=== PATIENT | female | born 1940 | race Caucasian/White ===

== ENCOUNTER 2021-10-31 09:11 | Inpatient (IN) | payer MEDICARE, OTHER ==
[2021-10-31 17:55] LABS: Basophil (Absolute #) 0.05 x10^3/uL (0-0.4); Eosinophil % 6.6 % (0.00-5.0); Eosinophil (Absolute #) 0.41 x10^3/uL (0-0.5); Hemoglobin 8.3 g/dL (12.0-16.0); Lymphocyte (Absolute #) 0.57 x10^3/uL (1.0-4.6); Lymphocytes % 9.2 % (24.0-44.0); Mean Cell Volume 92.8 fL (78-100); Mean Corpuscular Hemoglobin 28.5 pg (26-32); Mean Corpuscular Hgb Concent. 30.7 g/dL (32-36); Mean Platelet Volume 10.5 fL (7.5-11.0); Monocyte (Absolute #) 0.56 x10^3/uL (0.0-1.3); Neutrophil % 74.1 % (36.0-66.0); Platelet Count 112 x10^3/uL (150-450); Red Blood Count 2.91 x10^6/uL (4.1-5.4); Red Cell Distribution Width 15.7 % (11.5-14.0); White Blood Count 6.2 x10^3/uL (4.0-10.5)
[2021-10-31 18:11] LABS: ALBUMIN 3.8 g/dL (3.5-5.0); ANION GAP 14.6 MEQ/L (5-15); BILIRUBIN,TOTAL 0.7 mg/dL (0.2-1.3); Calcium 8.3 mg/dL (8.4-10.2); Creatinine 1 1.97 mg/dL (0.52-1.04); Potassium 5.1 mmol/L (3.5-5.1); Total Protein 7.6 g/dL (6.3-8.2)
[2021-10-31 18:32] LABS: INFLUENZA A NEGATIVE (NEGATIVE); INFLUENZA B NEGATIVE (NEGATIVE); RESPIRATORY SYNCTIAL VIRUS NEGATIVE (Negative); SARS-CoV-2 Xpert Express NEGATIVE (NEGATIVE)
[2021-10-31] MEDS ORDERED: VANCOCIN INJECTION*** 0.75 GM in Sodium Chloride 0.9% 250 ML 250 ML IV SCH (19:30)
[2021-10-31] MEDS ORDERED: Sodium Chloride 100ML MINI-BAG PLUS 100 ML IV ONE (20:56)
[2021-10-31] MEDS ORDERED: PIPERACILLIN/TAZOBACTAM IV ONE (20:56)
[2021-10-31] MEDS: PIPERACILLIN/TAZOBACTAM 3.375 GM in Sodium Chloride 100ML MINI-BAG PLUS 100 ML IV SCH (21:09)
[2021-10-31] MEDS: HUMALOG SQ PRN (21:13)
[2021-10-31] MEDS: NEURONTIN PO SCH (21:47)
[2021-11-01] MEDS ORDERED: PIPERACILLIN/TAZOBACTAM IV ONE ×2 (03:09→03:10)
[2021-11-01] MEDS ORDERED: Sodium Chloride 100ML MINI-BAG PLUS 100 ML IV ONE (03:11)
[2021-11-01] MEDS: PIPERACILLIN/TAZOBACTAM 3.375 GM in Sodium Chloride 100ML MINI-BAG PLUS 100 ML IV SCH (03:12)
--- NOTE | 2021-11-01 08:51 | XRAY ---
Indication: Abdomen pain. Umbilical hernia surgery March 2021 with erythema/swelling at surgical site. Multiple contiguous axial images obtained through the abdomen and pelvis without contrast. Comparison: December 07, 2019 Lung bases remain clear. Heart not enlarged. Again small hiatal hernia. Interval enlarging anterior abdominal wall fluid collection at the level of the umbilicus now measuring at least 5.6 x 7.3 x 7.2 cm with new circumferential wall thickening. Inflammatory/infectious process is of primary concern. Lack of IV contrast precludes further characterization. More inferior abdominal wall demonstrates new large focus of moderate cutaneous/subcutaneous induration. No subcutaneous emphysema. There has been interval left hip arthroplasty with bipolar prosthesis now producing beam artifact limiting these levels. Liver again appears cirrhotic with small abdominal/pelvic ascites, 14.4 cm splenomegaly, and splenorenal varices. Gallbladder remains distended with moderate dense gravel/stones in the dependent portion. Noncontrasted stomach and bowel loops nonobstructed again with small descending duodenal diverticulum. Again sigmoid diverticulosis without diverticulitis. Mid pelvis again demonstrates a grossly stable 7.5 cm simple-appearing cystic mass anterior to uterus. Uterus again demonstrates tiny calcified fibroid. No free air. Remaining pancreas, adrenal glands, kidneys, ureters, and bladder are unremarkable for noncontrast exam. There remains mild scattered aortoiliac calcifications without AAA. Osseous structures again demonstrates osteopenia and mild degenerative changes throughout the spine and both hips. Impression: 1. Interval enlarging umbilical fluid collection as detailed. Inflammatory/infectious processes of primary concern on this noncontrast exam. Also inferior abdominal wall cutaneous/subcutaneous induration also presumed inflammatory/infectious. 2. New left hip arthroplasty with beam artifact. 3. Again chronic findings cirrhosis, small abdomen/pelvic ascites, spinal megaly, splenorenal varices, duodenal diverticulum, sigmoid diverticulosis, calcified uterine fibroid, indeterminant pelvic cystic mass, arteriosclerotic disease, and chronic bony findings.
--- NOTE | 2021-11-01 08:53 | XRAY ---
Indication: Abdominal pain. Erythema/pain around umbilical hernia site. Comparison: None KUB demonstrates nonspecific nonobstructed bowel gas pattern. Numerous tiny gallstones/gravel. Remaining solid organs unremarkable. Osseous structures intact with mild osteopenia, degenerative changes, and left total hip arthroplasty. CT same-day CT abdomen/pelvis exam.
--- NOTE | 2021-11-01 08:55 | XRAY ---
Indication: Abdominal pain. Comparison: February 19, 2013 PA/lateral chest demonstrates new minimal lingula subsegmental atelectasis/scarring. Remaining heart and lungs unremarkable again with incidental tiny left lung calcified granulomas. Bony thorax intact with mild osteopenia and degenerative changes.
[2021-11-01 09:08] LABS: Absolute Neutrophil Ct (ANC) 4.38 x10^3/uL (1.4-6.9); Basophil (Absolute #) 0.05 x10^3/uL (0-0.4); Eosinophil % 8.5 % (0.00-5.0); Eosinophil (Absolute #) 0.52 x10^3/uL (0-0.5); Hematocrit 26.5 % (35-47); Hemoglobin 8.1 g/dL (12.0-16.0); Lymphocyte (Absolute #) 0.59 x10^3/uL (1.0-4.6); Lymphocytes % 9.7 % (24.0-44.0); Mean Cell Volume 92.7 fL (78-100); Mean Corpuscular Hemoglobin 28.3 pg (26-32); Mean Corpuscular Hgb Concent. 30.6 g/dL (32-36); Mean Platelet Volume 10.1 fL (7.5-11.0); Monocyte (Absolute #) 0.55 x10^3/uL (0.0-1.3); Neutrophil % 71.7 % (36.0-66.0); Platelet Count 106 x10^3/uL (150-450); Red Blood Count 2.86 x10^6/uL (4.1-5.4); Red Cell Distribution Width 15.5 % (11.5-14.0); White Blood Count 6.1 x10^3/uL (4.0-10.5)
[2021-11-01 09:22] LABS: ALBUMIN 3.5 g/dL (3.5-5.0); ANION GAP 11.7 MEQ/L (5-15); BILIRUBIN,TOTAL 0.7 mg/dL (0.2-1.3); Calcium 8.3 mg/dL (8.4-10.2); Creatinine 1 2.11 mg/dL (0.52-1.04); Potassium 5.3 mmol/L (3.5-5.1); Total Protein 7.2 g/dL (6.3-8.2)
[2021-11-01] MEDS ORDERED: NON-FORMULARY ITEM (Insulin Detemir [Levemir] 100 UNIT/ML Vial) SQ SCH (10:00)
[2021-11-01] MEDS ORDERED: NON-FORMULARY ITEM (Losartan Potassium [Losartan Potassium] 100 MG Tablet) PO SCH (10:00)
[2021-11-01] MEDS ORDERED: NON-FORMULARY ITEM (Spironolactone [Spironolactone] 100 MG Tablet) PO SCH (10:00)
[2021-11-01] MEDS: Lactated Ringers 1,000 ML IV SCH ×2 (10:28→23:58)
[2021-11-01] MEDS: Aldactone 25 MG PO SCH (10:30)
[2021-11-01] MEDS: Lasix 40 MG PO SCH ×2 (10:31→17:12)
[2021-11-01] MEDS: Cozaar 50 MG PO SCH (10:31)
[2021-11-01] MEDS: NEURONTIN PO SCH ×2 (10:32→22:10)
[2021-11-01] MEDS: Lantus Insulin SQ SCH (10:33)
[2021-11-01 10:45] LABS: Slide Review 1 YES
[2021-11-01] MEDS: Piperacillin/Tazobactam 2.25 GM 2.25 GM in Sodium Chloride 100ML MINI-BAG PLUS 100 ML IV SCH ×3 (12:04→23:58)
[2021-11-01] MEDS: HUMALOG SQ PRN ×3 (12:05→22:10)
--- NOTE | 2021-11-01 13:10 | PCM.HP ---
History of Present Illness - Chief Complaint Chief Complaint: cellulitis History of Present Illness: is a 80 year old female pt of Kathrin Reis with DMII, HTN, GERD, hypothryoidism, OA, anemia,liver dz and renal failure (stage 3) who was seen in office by Kathrin yesterday then admitted by me for lower abdominal cellulitis. She had a hernia repair in Mar 2021 and had multiple drains placed for some time (all are now removed). Her lower abdomen/pannus has been red for some time. How ever, 3 weeks ago it became sore as well. Yesterday it was 7/10; she was admitted on IV vancomycin and zosyn. CT abdominal wall showed umbilical fluid collection, enlarging (now 5.6 x 7.3 x 7.2 cm ). On admission her hgb was 8.3. WBC 6.2 (with 74% granulocytes). Na 128. Today WBC remain nl with L shift. Na 132. Hgb 8.1. Today she feels much better. Abd wall pain is 1/10. - Review of Systems Respiratory: Cough (chronic) Abdominal/Gastrointestinal: Diarrhea (chronic, since surgery) Skin: Cellulitis Neurological: Dizziness (lightheaded, recently) Psychological: Depression (when she was in pain - now feeling fine) All Other Systems: Reviewed and Negative Medications & Allergies Home Medications: Home Medication List Furosemide 40 mg [Lasix 40 MG] 40 mg PO BID 10/31/21 [History Confirmed 10/31/21] Gabapentin 300 mg PO BID 10/31/21 [History Confirmed 10/31/21] Glipizide 5 mg [Glucotrol 5 MG] 10 mg PO BID 10/31/21 [History Confirmed 10/31/21] Insulin Detemir [Levemir] 15 - 30 unit SQ DAILY 10/31/21 [History Confirmed 10/31/21] Losartan Potassium 100 mg PO DAILY 10/31/21 [History Confirmed 10/31/21] Spironolactone 100 mg PO DAILY 10/31/21 [History Confirmed 10/31/21] Allergies/Adverse Reactions: Allergies Allergy/AdvReac Type Severity Reaction Status Date / Time No Known Drug Allergies Allergy Unverified 10/31/21 17:36 - Past Medical History Past Medical History: Yes Neurological History: Peripheral Neuropathy ENT History: No Pertinent History Cardiac History: No Pertinent History Respiratory History: Asthma Endocrine Medical History: Diabetes Type II, Hypothyroidism Musculoskelatal History: Arthritis, Osteoarthritis GI Medical History: Cirrhosis, Hernia History: Renal Disease Reproductive Disorders: No Pertinent History Comment: KIDNEY DISEASE, STATES KIDNEY'S WORK AT 1/3 ANEMIA, VERACES - Female History Are you now?: No - Past Surgical History Past Surgical History: Yes Cardiac History: No Pertinent History Respiratory Surgery: No Pertinent History GI Surgical History: Hernia Repair Genitourinary Surgical Hx: No Pertinent History Musculskeletal Surgical Hx: Orthopedic Surgery Female Surgical History: No Pertinent History Other Surgical History: L AND RIGHT KNEE REPLACEMENT; LEFT HIP REPLACEMENT; HERNIA REPAIR X 2; - Social History Smoking Status: Former smoker Alcohol: None Drug Use: none - Physical Exam Vital Signs: Vital Signs - 24 hr Temp Pulse Resp BP Pulse Ox 11/01/21 11:39 97.1 F 68 18 120/80 98 11/01/21 07:37 97.5 F 69 18 117/57 97 11/01/21 04:00 97.5 F 77 16 130/60 98 11/01/21 00:00 97.8 F 79 20 107/48 96 General Appearance: no apparent distress, obese Neurologic Exam: alert, oriented x 3, cooperative Eye Exam: eyes nml inspection Ears, Nose, Throat Exam: moist mucous membranes Neck Exam: normal inspection, No lymphadenopathy, No thyromegaly Respiratory Exam: normal breath sounds, lungs clear, No crackles/rales, No rhonchi, No wheezing Cardiovascular Exam: regular rate/rhythm, normal heart sounds, No murmur Gastrointestinal/Abdomen Exam: soft, normal bowel sounds, other (from approx the area of the umbilicus inferior to the inferior edge of the pannus, there is a dull erythema, with warmth. there is induration around the area of the umbilicus (approx 6x6 cm). Mild ttp. No exudates or fluctuance.) Extremity Exam: normal inspection, No pedal edema, No swelling Wound Assessment: Skin/Wound Assessment Wound/Incision Assessment Start: 10/31/21 17:21 Text: Status: Active Freq: Q6H Protocol: Document 11/01/21 00:11 LB (Rec: 11/01/21 00:14 LB [id number]) Wound/Incision Assessment Abdomen Comment . Wound Photo Photo Taken No Results - Labs Lab/Micro Results: Lab Results-Last 24 Hours 10/31/21 10/31/21 10/31/21 Range/Units 17:45 17:45 17:45 WBC 6.2 (4.0-10.5) x10^3/uL RBC 2.91 L (4.1-5.4) x10^6/uL Hgb 8.3 L (12.0-16.0) g/dL Hct 27.0 L (35-47) % MCV 92.8 (78-100) fL MCH 28.5 (26-32) pg MCHC 30.7 L (32-36) g/dL RDW 15.7 H (11.5-14.0) % Plt Count 112 L (150-450) x10^3/uL MPV 10.5 (7.5-11.0) fL Gran % 74.1 H (36.0-66.0) % Immature Gran % (Auto) 0.3 (0.00-0.4) % Nucleat RBC Rel Count 0.0 (0.00-0.1) % Eos # (Auto) 0.41 (0-0.5) x10^3/uL Immature Gran # (Auto) 0.02 (0.00-0.03) x10^3u/L Absolute Lymphs (auto) 0.57 L (1.0-4.6) x10^3/uL Absolute Monos (auto) 0.56 (0.0-1.3) x10^3/uL Absolute Nucleated RBC 0.00 (0.00-0.01) x10^3u/L Lymphocytes % 9.2 L (24.0-44.0) % Monocytes % 9.0 (0.0-12.0) % Eosinophils % 6.6 H (0.00-5.0) % Basophils % 0.8 (0.0-0.4) % Absolute Granulocytes 4.60 (1.4-6.9) x10^3/uL Basophils # 0.05 (0-0.4) x10^3/uL Sodium 128 L (137-145) mmol/L Potassium 5.1 (3.5-5.1) mmol/L Chloride 91 L (98-107) mmol/L Carbon Dioxide 28 (22-30) mmol/L Anion Gap 14.6 (5-15) MEQ/L BUN 37 H (7-17) mg/dL Creatinine 1.97 H (0.52-1.04) mg/dL Estimated GFR 26.0 ML/MIN Glucose 433 H (74-106) mg/dL POC Glucometer (74 to 106) mg/dL Hemoglobin A1c (4.5-6.0) % Calcium 8.3 L (8.4-10.2) mg/dL Total Bilirubin 0.70 (0.2-1.3) mg/dL AST 35 (14-36) U/L ALT 15 (0-35) U/L Alkaline Phosphatase 163 H (38-126) U/L Serum Total Protein 7.6 (6.3-8.2) g/dL Albumin 3.8 (3.5-5.0) g/dL Influenza Type A Ag NEGATIVE (NEGATIVE) Influenza Type B Ag NEGATIVE (NEGATIVE) RSV (PCR) NEGATIVE (Negative) SARS-CoV-2 (PCR) NEGATIVE (NEGATIVE) Slides for Path Review 10/31/21 11/01/21 11/01/21 Range/Units 20:38 05:00 06:55 WBC (4.0-10.5) x10^3/uL RBC (4.1-5.4) x10^6/uL Hgb (12.0-16.0) g/dL Hct (35-47) % MCV (78-100) fL MCH (26-32) pg MCHC (32-36) g/dL RDW (11.5-14.0) % Plt Count (150-450) x10^3/uL MPV (7.5-11.0) fL Gran % (36.0-66.0) % Immature Gran % (Auto) (0.00-0.4) % Nucleat RBC Rel Count (0.00-0.1) % Eos # (Auto) (0-0.5) x10^3/uL Immature Gran # (Auto) (0.00-0.03) x10^3u/L Absolute Lymphs (auto) (1.0-4.6) x10^3/uL Absolute Monos (auto) (0.0-1.3) x10^3/uL Absolute Nucleated RBC (0.00-0.01) x10^3u/L Lymphocytes % (24.0-44.0) % Monocytes % (0.0-12.0) % Eosinophils % (0.00-5.0) % Basophils % (0.0-0.4) % Absolute Granulocytes (1.4-6.9) x10^3/uL Basophils # (0-0.4) x10^3/uL Sodium (137-145) mmol/L Potassium (3.5-5.1) mmol/L Chloride (98-107) mmol/L Carbon Dioxide (22-30) mmol/L Anion Gap (5-15) MEQ/L BUN (7-17) mg/dL Creatinine (0.52-1.04) mg/dL Estimated GFR ML/MIN Glucose (74-106) mg/dL POC Glucometer 383 H 123 H (74 to 106) mg/dL Hemoglobin A1c 10.22 H (4.5-6.0) % Calcium (8.4-10.2) mg/dL Total Bilirubin (0.2-1.3) mg/dL AST (14-36) U/L ALT (0-35) U/L Alkaline Phosphatase (38-126) U/L Serum Total Protein (6.3-8.2) g/dL Albumin (3.5-5.0) g/dL Influenza Type A Ag (NEGATIVE) Influenza Type B Ag (NEGATIVE) RSV (PCR) (Negative) SARS-CoV-2 (PCR) (NEGATIVE) Slides for Path Review 11/01/21 11/01/21 11/01/21 Range/Units 09:07 09:07 11:13 WBC 6.1 (4.0-10.5) x10^3/uL RBC 2.86 L (4.1-5.4) x10^6/uL Hgb 8.1 L (12.0-16.0) g/dL Hct 26.5 L (35-47) % MCV 92.7 (78-100) fL MCH 28.3 (26-32) pg MCHC 30.6 L (32-36) g/dL RDW 15.5 H (11.5-14.0) % Plt Count 106 L (150-450) x10^3/uL MPV 10.1 (7.5-11.0) fL Gran % 71.7 H (36.0-66.0) % Immature Gran % (Auto) 0.3 (0.00-0.4) % Nucleat RBC Rel Count 0.0 (0.00-0.1) % Eos # (Auto) 0.52 H (0-0.5) x10^3/uL Immature Gran # (Auto) 0.02 (0.00-0.03) x10^3u/L Absolute Lymphs (auto) 0.59 L (1.0-4.6) x10^3/uL Absolute Monos (auto) 0.55 (0.0-1.3) x10^3/uL Absolute Nucleated RBC 0.00 (0.00-0.01) x10^3u/L Lymphocytes % 9.7 L (24.0-44.0) % Monocytes % 9.0 (0.0-12.0) % Eosinophils % 8.5 H (0.00-5.0) % Basophils % 0.8 (0.0-0.4) % Absolute Granulocytes 4.38 (1.4-6.9) x10^3/uL Basophils # 0.05 (0-0.4) x10^3/uL Sodium 132 L (137-145) mmol/L Potassium 5.3 H (3.5-5.1) mmol/L Chloride 96 L (98-107) mmol/L Carbon Dioxide 29 (22-30) mmol/L Anion Gap 11.7 (5-15) MEQ/L BUN 35 H (7-17) mg/dL Creatinine 2.11 H (0.52-1.04) mg/dL Estimated GFR 24.0 ML/MIN Glucose 153 H (74-106) mg/dL POC Glucometer 180 H (74 to 106) mg/dL Hemoglobin A1c (4.5-6.0) % Calcium 8.3 L (8.4-10.2) mg/dL Total Bilirubin 0.70 (0.2-1.3) mg/dL AST 37 H (14-36) U/L ALT 15 (0-35) U/L Alkaline Phosphatase 130 H (38-126) U/L Serum Total Protein 7.2 (6.3-8.2) g/dL Albumin 3.5 (3.5-5.0) g/dL Influenza Type A Ag (NEGATIVE) Influenza Type B Ag (NEGATIVE) RSV (PCR) (Negative) SARS-CoV-2 (PCR) (NEGATIVE) Slides for Path Review YES Accuchecks Date 10/31/21 Time 22:00 - Radiology Impressions Radiology Exams & Impressions: Radiology Procedures Category Date Time Status ABDOMEN AND PELVIS W/0 CONTRAS [CT] Urgent Exams 10/31/21 16:57 Completed CHEST 2 VIEWS (PA AND LAT) Urgent Exams 10/31/21 19:21 Completed KUB Urgent Exams 10/31/21 19:21 Completed Assessment/Plan (1) Abdominal wall cellulitis Current Visit: Yes Status: Acute Assessment & Plan: Much improved after 1 night on zosyn/vancomycin (day #2). Consulting surgery for fluid collection at level of umbilicus, thank you. Code(s): L03.311 - CELLULITIS OF ABDOMINAL WALL (2) Acute on chronic renal failure Current Visit: Yes Status: Acute Qualifiers: Acute renal failure type: unspecified Chronic kidney disease stage: stage 4 (severe) Qualified Code(s): N17.9 - Acute kidney failure, unspecified; N18.4 - Chronic kidney disease, stage 4 (severe) Assessment & Plan: eGFR 26 yesterday and 24 today; have restarted her fluids. May need to change the vancomycin to another agent. Code(s): N17.9 - ACUTE KIDNEY FAILURE, UNSPECIFIED; N18.9 - CHRONIC KIDNEY DISEASE, UNSPECIFIED (3) Hyperkalemia Current Visit: Yes Status: Acute Assessment & Plan: holding spironolactone for K+ 5.3. Code(s): E87.5 - HYPERKALEMIA (4) Anemia Current Visit: Yes Status: Chronic Qualifiers: Anemia type: due to chronic kidney disease Chronic kidney disease stage: stage 3 (moderate) Code(s): D64.9 - ANEMIA, UNSPECIFIED (5) Hyponatremia Current Visit: Yes Status: Acute Assessment & Plan: improved today Code(s): E87.1 - HYPO-OSMOLALITY AND HYPONATREMIA (6) Diabetes mellitus type II, uncontrolled Current Visit: Yes Status: Chronic Qualifiers: Glycemic state: with hyperglycemia Qualified Code(s): E11.65 - Type 2 diabetes mellitus with hyperglycemia Assessment & Plan: a1c >10 Code(s): HAQ2877 - (7) Obesity Current Visit: Yes Status: Chronic Qualifiers: Obesity type: due to excess calories Code(s): E66.9 - OBESITY, UNSPECIFIED (8) Cirrhosis Current Visit: Yes Status: Chronic Assessment & Plan: has hx varices and ascites (9) HTN (hypertension) Current Visit: Yes Status: Chronic Qualifiers: Hypertension type: primary hypertension Qualified Code(s): I10 - Essential (primary) hypertension Code(s): I10 - ESSENTIAL (PRIMARY) HYPERTENSION (10) Hypothyroid Current Visit: Yes Status: Chronic Qualifiers: Hypothyroidism type: acquired Qualified Code(s): E03.9 - Hypothyroidism, unspecified Code(s): E03.9 - HYPOTHYROIDISM, UNSPECIFIED (11) GERD (gastroesophageal reflux disease) Current Visit: Yes Status: Chronic Qualifiers: Esophagitis presence: without esophagitis Qualified Code(s): K21.9 - Gastro-esophageal reflux disease without esophagitis Code(s): K21.9 - GASTRO-ESOPHAGEAL REFLUX DISEASE WITHOUT ESOPHAGITIS (12) DVT prophylaxis Current Visit: Yes Status: Acute Assessment & Plan: SCDs while in bed; encourage pt to be up. Code(s): Z29.9 - ENCOUNTER FOR PROPHYLACTIC MEASURES, UNSPECIFIED
[2021-11-01] MEDS ORDERED: IMODIUM 2 MG PO PRN (16:57)
[2021-11-01] MEDS: Acidophilus TABLET PO SCH ×2 (17:12→22:10)
[2021-11-01 18:13] LABS: 027 TOX PROD PRESUMPTIVE NEGATIVE (NEGATIVE)
[2021-11-01 18:28] LABS: TOXIGENIC C. DIFF ORG POSITIVE (NEGATIVE)
[2021-11-01] MEDS ORDERED: VANCOCIN INJECTION*** 0.75 GM in Sodium Chloride 0.9% 250 ML 250 ML IV SCH (22:00)
[2021-11-01] MEDS: VANCOMYCIN HCL CAPSULE PO SCH (22:10)
[2021-11-02] MEDS: Piperacillin/Tazobactam 2.25 GM 2.25 GM in Sodium Chloride 100ML MINI-BAG PLUS 100 ML IV SCH ×3 (06:58→17:51)
[2021-11-02 07:49] LABS: Absolute Neutrophil Ct (ANC) 2.89 x10^3/uL (1.4-6.9); Basophil (Absolute #) 0.03 x10^3/uL (0-0.4); Eosinophil % 7.9 % (0.00-5.0); Eosinophil (Absolute #) 0.32 x10^3/uL (0-0.5); Hematocrit 23.7 % (35-47); Hemoglobin 7.1 g/dL (12.0-16.0); Lymphocyte (Absolute #) 0.41 x10^3/uL (1.0-4.6); Lymphocytes % 10.1 % (24.0-44.0); Mean Cell Volume 92.2 fL (78-100); Mean Corpuscular Hemoglobin 27.6 pg (26-32); Mean Platelet Volume 10.5 fL (7.5-11.0); Monocyte (Absolute #) 0.41 x10^3/uL (0.0-1.3); Monocytes % 10.1 % (0.0-12.0); Platelet Count 79 x10^3/uL (150-450); Red Blood Count 2.57 x10^6/uL (4.1-5.4); Red Cell Distribution Width 15.4 % (11.5-14.0); White Blood Count 4.1 x10^3/uL (4.0-10.5)
--- NOTE | 2021-11-02 08:40 | PCM.NOTE ---
Date and Time: 11/02/21 0837 Subjective Assessment: patient is quite pleased with her progress, redness and pain are much improved. was given imodium prior to c diff result yesterday. hasn't had any diarrhea since then. overall doing much better. Objective Exam General Appearance: no apparent distress, obese Neurologic Exam: alert, oriented x 3 Wound Assessment: Skin/Wound Assessment Wound/Incision Assessment Start: 10/31/21 17:21 Text: Status: Active Freq: Q6H Protocol: Document 11/02/21 08:00 MARIANELA (Rec: 11/02/21 08:35 [id number]) Wound/Incision Assessment Abdomen Wound Assessment Shift Assessment Wound Type cellulitis Wound Stage Non Pressure Wound Dressing Status Dry & Intact Drainage Amount None General Appearance Open to air Surrounding Tissue [place] Comment reddened and warm to touch Wound Photo Photo Taken No Respiratory Exam: normal breath sounds, lungs clear, No respiratory distress Cardiovascular Exam: regular rate/rhythm Gastrointestinal/Abdomen Exam: soft, other (mild erythema to lower abdomen, no guarding or rebound) OBJECTIVE DATA Vital Signs: Vital Signs - 24 hr Temp Pulse Resp BP Pulse Ox 11/02/21 07:32 97.9 F 86 16 92/50 95 11/02/21 03:44 97.8 F 87 18 110/53 94 L 11/02/21 00:00 70 19 11/01/21 19:54 97.9 F 85 18 129/60 98 11/01/21 16:00 97.3 F 85 18 115/49 94 L 11/01/21 11:39 97.1 F 68 18 120/80 98 Pain Assessment - Last Documented Pain Intensity 0 Intake and Output: Intake & Output 10/30/21 10/31/21 11/01/21 11/02/21 11:59 11:59 11:59 11:59 Intake Total 1460 3937 Balance 1460 3937 Weight 93.4 kg Lab Results: Lab Results-Last 24 Hours 11/01/21 11/01/21 11/01/21 Range/Units 09:07 09:07 11:13 WBC 6.1 (4.0-10.5) x10^3/uL RBC 2.86 L (4.1-5.4) x10^6/uL Hgb 8.1 L (12.0-16.0) g/dL Hct 26.5 L (35-47) % MCV 92.7 (78-100) fL MCH 28.3 (26-32) pg MCHC 30.6 L (32-36) g/dL RDW 15.5 H (11.5-14.0) % Plt Count 106 L (150-450) x10^3/uL MPV 10.1 (7.5-11.0) fL Gran % 71.7 H (36.0-66.0) % Immature Gran % (Auto) 0.3 (0.00-0.4) % Nucleat RBC Rel Count 0.0 (0.00-0.1) % Eos # (Auto) 0.52 H (0-0.5) x10^3/uL Immature Gran # (Auto) 0.02 (0.00-0.03) x10^3u/L Absolute Lymphs (auto) 0.59 L (1.0-4.6) x10^3/uL Absolute Monos (auto) 0.55 (0.0-1.3) x10^3/uL Absolute Nucleated RBC 0.00 (0.00-0.01) x10^3u/L Lymphocytes % 9.7 L (24.0-44.0) % Monocytes % 9.0 (0.0-12.0) % Eosinophils % 8.5 H (0.00-5.0) % Basophils % 0.8 (0.0-0.4) % Absolute Granulocytes 4.38 (1.4-6.9) x10^3/uL Basophils # 0.05 (0-0.4) x10^3/uL Sodium 132 L (137-145) mmol/L Potassium 5.3 H (3.5-5.1) mmol/L Chloride 96 L (98-107) mmol/L Carbon Dioxide 29 (22-30) mmol/L Anion Gap 11.7 (5-15) MEQ/L BUN 35 H (7-17) mg/dL Creatinine 2.11 H (0.52-1.04) mg/dL Estimated GFR 24.0 ML/MIN Glucose 153 H (74-106) mg/dL POC Glucometer 180 H (74 to 106) mg/dL Calcium 8.3 L (8.4-10.2) mg/dL Total Bilirubin 0.70 (0.2-1.3) mg/dL AST 37 H (14-36) U/L ALT 15 (0-35) U/L Alkaline Phosphatase 130 H (38-126) U/L Serum Total Protein 7.2 (6.3-8.2) g/dL Albumin 3.5 (3.5-5.0) g/dL C. difficile Screen (NEGATIVE) C.difficile 027-NAP1-B1 (NEGATIVE) Slides for Path Review YES 11/01/21 11/01/21 11/01/21 Range/Units 16:37 17:00 20:44 WBC (4.0-10.5) x10^3/uL RBC (4.1-5.4) x10^6/uL Hgb (12.0-16.0) g/dL Hct (35-47) % MCV (78-100) fL MCH (26-32) pg MCHC (32-36) g/dL RDW (11.5-14.0) % Plt Count (150-450) x10^3/uL MPV (7.5-11.0) fL Gran % (36.0-66.0) % Immature Gran % (Auto) (0.00-0.4) % Nucleat RBC Rel Count (0.00-0.1) % Eos # (Auto) (0-0.5) x10^3/uL Immature Gran # (Auto) (0.00-0.03) x10^3u/L Absolute Lymphs (auto) (1.0-4.6) x10^3/uL Absolute Monos (auto) (0.0-1.3) x10^3/uL Absolute Nucleated RBC (0.00-0.01) x10^3u/L Lymphocytes % (24.0-44.0) % Monocytes % (0.0-12.0) % Eosinophils % (0.00-5.0) % Basophils % (0.0-0.4) % Absolute Granulocytes (1.4-6.9) x10^3/uL Basophils # (0-0.4) x10^3/uL Sodium (137-145) mmol/L Potassium (3.5-5.1) mmol/L Chloride (98-107) mmol/L Carbon Dioxide (22-30) mmol/L Anion Gap (5-15) MEQ/L BUN (7-17) mg/dL Creatinine (0.52-1.04) mg/dL Estimated GFR ML/MIN Glucose (74-106) mg/dL POC Glucometer 285 H 255 H (74 to 106) mg/dL Calcium (8.4-10.2) mg/dL Total Bilirubin (0.2-1.3) mg/dL AST (14-36) U/L ALT (0-35) U/L Alkaline Phosphatase (38-126) U/L Serum Total Protein (6.3-8.2) g/dL Albumin (3.5-5.0) g/dL C. difficile Screen POSITIVE (NEGATIVE) C.difficile 027-NAP1-B1 PRESUMPTIVE NEGATIVE (NEGATIVE) Slides for Path Review 11/02/21 11/02/21 Range/Units 07:09 07:40 WBC 4.1 (4.0-10.5) x10^3/uL RBC 2.57 L (4.1-5.4) x10^6/uL Hgb 7.1 L (12.0-16.0) g/dL Hct 23.7 L (35-47) % MCV 92.2 (78-100) fL MCH 27.6 (26-32) pg MCHC 30.0 L (32-36) g/dL RDW 15.4 H (11.5-14.0) % Plt Count 79 L (150-450) x10^3/uL MPV 10.5 (7.5-11.0) fL Gran % 71.0 H (36.0-66.0) % Immature Gran % (Auto) 0.2 (0.00-0.4) % Nucleat RBC Rel Count 0.0 (0.00-0.1) % Eos # (Auto) 0.32 (0-0.5) x10^3/uL Immature Gran # (Auto) 0.01 (0.00-0.03) x10^3u/L Absolute Lymphs (auto) 0.41 L (1.0-4.6) x10^3/uL Absolute Monos (auto) 0.41 (0.0-1.3) x10^3/uL Absolute Nucleated RBC 0.00 (0.00-0.01) x10^3u/L Lymphocytes % 10.1 L (24.0-44.0) % Monocytes % 10.1 (0.0-12.0) % Eosinophils % 7.9 H (0.00-5.0) % Basophils % 0.7 (0.0-0.4) % Absolute Granulocytes 2.89 (1.4-6.9) x10^3/uL Basophils # 0.03 (0-0.4) x10^3/uL Sodium (137-145) mmol/L Potassium (3.5-5.1) mmol/L Chloride (98-107) mmol/L Carbon Dioxide (22-30) mmol/L Anion Gap (5-15) MEQ/L BUN (7-17) mg/dL Creatinine (0.52-1.04) mg/dL Estimated GFR ML/MIN Glucose (74-106) mg/dL POC Glucometer 99 (74 to 106) mg/dL Calcium (8.4-10.2) mg/dL Total Bilirubin (0.2-1.3) mg/dL AST (14-36) U/L ALT (0-35) U/L Alkaline Phosphatase (38-126) U/L Serum Total Protein (6.3-8.2) g/dL Albumin (3.5-5.0) g/dL C. difficile Screen (NEGATIVE) C.difficile 027-NAP1-B1 (NEGATIVE) Slides for Path Review Radiology Exams: Radiology Procedures Category Date Time Status ABDOMEN AND PELVIS W/0 CONTRAS [CT] Urgent Exams 10/31/21 16:57 Completed CHEST 2 VIEWS (PA AND LAT) Urgent Exams 10/31/21 19:21 Completed KUB Urgent Exams 10/31/21 19:21 Completed Assessment/Plan (1) Abdominal wall cellulitis Current Visit: Yes Status: Acute Assessment & Plan: improving on zosyn currently, was on parenteral vanc initially but this was discontinued due to c diff and changed to po. if continues to improve likely home tomorrow. Code(s): L03.311 - CELLULITIS OF ABDOMINAL WALL (2) C. difficile colitis Current Visit: Yes Status: Acute Assessment & Plan: continue po vanc, currently without diarrhea and exam is benign Code(s): A04.72 - ENTEROCOLITIS D/T CLOSTRIDIUM DIFFICILE, NOT SPCF RECUR (3) Cirrhosis Current Visit: Yes Status: Chronic (4) Diabetes mellitus type II, uncontrolled Current Visit: Yes Status: Chronic Qualifiers: Glycemic state: with hyperglycemia Qualified Code(s): E11.65 - Type 2 diabetes mellitus with hyperglycemia Code(s): NNP7509 - (5) Obesity Current Visit: Yes Status: Chronic Qualifiers: Obesity type: due to excess calories Code(s): E66.9 - OBESITY, UNSPECIFIED
[2021-11-02] MEDS: NEURONTIN PO SCH ×2 (09:30→22:07)
[2021-11-02] MEDS: Lasix 40 MG PO SCH ×2 (09:30→16:28)
[2021-11-02] MEDS: Cozaar 50 MG PO SCH ×2 (09:30→09:38)
[2021-11-02] MEDS: Acidophilus TABLET PO SCH ×3 (09:30→22:06)
[2021-11-02] MEDS: VANCOMYCIN HCL CAPSULE PO SCH ×4 (09:30→22:07)
[2021-11-02] MEDS: Lantus Insulin SQ SCH (09:33)
[2021-11-02] MEDS ORDERED: TYLENOL 325 MG ONE (11:46)
[2021-11-02] MEDS: HUMALOG SQ PRN ×3 (11:48→22:07)
[2021-11-02] MEDS: TYLENOL 325 MG PO PRN ×2 (11:48→22:07)
[2021-11-02 13:56] LABS: ANION GAP 8.2 MEQ/L (5-15); Calcium 8.5 mg/dL (8.4-10.2); Creatinine 1 1.94 mg/dL (0.52-1.04); EST GLOMERULAR FILTRATION RATE 26.5 ML/MIN; Potassium 4.2 mmol/L (3.5-5.1)
[2021-11-02 14:44] LABS: Slide Review 1 YES
--- NOTE | 2021-11-02 16:07 | CONS ---
CONSULT DATE: 11/02/2021 REASON FOR CONSULT: Abdominal wall infection status post surgical intervention at . HISTORY: We are being consulted on a patient who is under the care of Surgical and Medical. We are not accepting any responsibility for care or future care as I think it would have been appropriate for them to admit this patient for this postoperative issue. The patient has a long history. She has had health failure for some while some five or six years. She is not on transplant service. She is followed by Medical however. She apparently had a symptomatic umbilical hernia that was primary repaired about a year and a half ago. It did not work out. It came back and then she had a mesh repair of this back in March. She had redness and warmth in the lower abdominal panniculus from the minute that she left that institution from the time of surgery. She developed a seroma. She had it drained once percutaneously and then she had a drain in place in this seroma for about three weeks and then it was removed. She said it was actually concave after that time. It then filled back up. She did say that sometimes there was up to 1200 cc of drainage in a day. There was concern that there might be ascites leak. She did have paracentesis of about 2 liters from the left lower quadrant some time in this time range. She was seen by medical and prepared for TIPS procedure. Apparently they were hoping the TIPS procedure would decrease the ascites and decrease the seroma and improve the healing. She developed acute redness and temperature from the lower panniculus a little bit worse on the left side than the right side here just the last few days. She saw her family doctor who consulted . They said basically that they would not need to see her and see her family doctor. Her family doctor checked [place] [facility] did not accept this patient in consultation as she was recent postoperative patient. She was admitted in the hospital here at [facility]. We were consulted and on staff here at [facility]. On physical examination, there is a significant cellulitis of the lower abdominal panniculus. It is warm. It is red. It has some Peau d'orange to it. The nursing staff said it was better today than it was yesterday. I feel this is probably an accurate description. It is mainly centered on the left side today where it had approximately the left flank some and it went across the midline to the right on admission. There is a seroma still present. The seroma is firm, not hard but clearly firm. IMPRESSION: The patient has a major abdominal wall cellulitis close to an area of a recently placed mesh this is clearly a significant issue. She does have an appointment with them for TIPS care. She needs to be reseen by the attending surgeon and team here in the near future. At this time it is at least starting to get better. She is on Zosyn. She has a new diagnosis of Clostridium difficile colitis. She has not been started on vancomycin but there are no cultures suggesting Staph although I cannot picture this not being a Staph infection. She is getting better on the antibiotic that she is on currently. I think her treatment is close to optimal. She may require vancomycin IV. I certainly agree with her Zosyn and p.o. vancomycin and with her general treatment that has been quite supportive. The patient said she has had more done in the last 24 hours here than she has had at any hospital to date. She does also look quite vigorous today. I believe her granddaughter is present at the bedside during this visitation. PLAN: Continue basically current treatment. Consideration of vancomycin IV if necessary also for the abdominal condition, this would not improve the colitis any.
[2021-11-02] MEDS ORDERED: TROUGH DRUG LEVELS IJ ONE (21:30)
[2021-11-03 04:58] LABS: Absolute Neutrophil Ct (ANC) 2.56 x10^3/uL (1.4-6.9); Basophil (Absolute #) 0.03 x10^3/uL (0-0.4); Eosinophil % 7.9 % (0.00-5.0); Eosinophil (Absolute #) 0.31 x10^3/uL (0-0.5); Hematocrit 24.4 % (35-47); Hemoglobin 7.4 g/dL (12.0-16.0); Lymphocyte (Absolute #) 0.49 x10^3/uL (1.0-4.6); Lymphocytes % 12.6 % (24.0-44.0); Mean Cell Volume 92.8 fL (78-100); Mean Corpuscular Hemoglobin 28.1 pg (26-32); Mean Corpuscular Hgb Concent. 30.3 g/dL (32-36); Monocyte (Absolute #) 0.49 x10^3/uL (0.0-1.3); Monocytes % 12.6 % (0.0-12.0); Neutrophil % 65.6 % (36.0-66.0); Platelet Count 62 x10^3/uL (150-450); Red Blood Count 2.63 x10^6/uL (4.1-5.4); Red Cell Distribution Width 15.4 % (11.5-14.0); White Blood Count 3.9 x10^3/uL (4.0-10.5)
[2021-11-03 05:37] LABS: ALBUMIN 3.1 g/dL (3.5-5.0); ANION GAP 9.7 MEQ/L (5-15); BILIRUBIN,TOTAL 0.6 mg/dL (0.2-1.3); Calcium 8.8 mg/dL (8.4-10.2); Creatinine 1 2.13 mg/dL (0.52-1.04); EST GLOMERULAR FILTRATION RATE 23.8 ML/MIN; MAGNESIUM 1.7 mg/dL (1.6-2.3); Potassium 4.1 mmol/L (3.5-5.1); Total Protein 6.7 g/dL (6.3-8.2)
[2021-11-03] MEDS: Piperacillin/Tazobactam 2.25 GM 2.25 GM in Sodium Chloride 100ML MINI-BAG PLUS 100 ML IV SCH ×3 (06:01)
[2021-11-03 08:47] VITALS: O2SAT 97
[2021-11-03] MEDS: Cozaar 50 MG PO SCH (09:21)
[2021-11-03] MEDS: NEURONTIN PO SCH (09:21)
[2021-11-03] MEDS: Lasix 40 MG PO SCH (09:21)
[2021-11-03] MEDS: Acidophilus TABLET PO SCH (09:21)
--- NOTE | 2021-11-03 09:21 | PCM.DS ---
Discharge Summary Date of Admission: 11/01/21 09:11 Admitting Physician: MEAGAN VAZ Consults: Consults on Case 11/01/21 09:11 Consult Surgery ROUTINE Primary Care Provider: MARIBELL KAPOOR Allergies Allergies No Known Drug Allergies Allergy (Unverified 10/31/21 17:36) Hospital Summary - Hospital Course Hospital Course: patient was admitted with abdominal wall cellulitis, treated with vanc/zosyn. developed diarrhea and had a positive c diff, diarrhea has resolved quickly. her pain, redness and swelling in lower abdomen is much improved. she is awaiting TIPS procedure for cirrhosis in [facility] - Vitals & Intake/Output Vital Signs: Vital Signs Temperature 97.1 F 11/03/21 08:00 Pulse Rate 82 11/03/21 08:00 Respiratory Rate 19 11/03/21 08:00 Blood Pressure 136/62 11/03/21 08:00 O2 Sat by Pulse Oximetry 97 11/03/21 08:00 Intake & Output: Intake & Output 10/31/21 11/01/21 11/02/21 11/03/21 11:59 11:59 11:59 11:59 Intake Total 1460 4417 1260 Balance 1460 4417 1260 Weight 93.4 kg - Lab Result Diagrams: 11/03/21 04:55 11/03/21 04:55 Lab Results-Last 24 Hrs: Lab Results-Last 24 Hours 11/02/21 11/02/21 11/02/21 Range/Units 07:40 07:40 11:24 WBC (4.0-10.5) x10^3/uL RBC (4.1-5.4) x10^6/uL Hgb (12.0-16.0) g/dL Hct (35-47) % MCV (78-100) fL MCH (26-32) pg MCHC (32-36) g/dL RDW (11.5-14.0) % Plt Count (150-450) x10^3/uL MPV (7.5-11.0) fL Gran % (36.0-66.0) % Immature Gran % (Auto) (0.00-0.4) % Nucleat RBC Rel Count (0.00-0.1) % Eos # (Auto) (0-0.5) x10^3/uL Immature Gran # (Auto) (0.00-0.03) x10^3u/L Absolute Lymphs (auto) (1.0-4.6) x10^3/uL Absolute Monos (auto) (0.0-1.3) x10^3/uL Absolute Nucleated RBC (0.00-0.01) x10^3u/L Lymphocytes % (24.0-44.0) % Monocytes % (0.0-12.0) % Eosinophils % (0.00-5.0) % Basophils % (0.0-0.4) % Absolute Granulocytes (1.4-6.9) x10^3/uL Basophils # (0-0.4) x10^3/uL Sodium 133 L (137-145) mmol/L Potassium 4.2 D (3.5-5.1) mmol/L Chloride 100 (98-107) mmol/L Carbon Dioxide 30 (22-30) mmol/L Anion Gap 8.2 (5-15) MEQ/L BUN 34 H (7-17) mg/dL Creatinine 1.94 H (0.52-1.04) mg/dL Estimated GFR 26.5 ML/MIN Glucose 103 (74-106) mg/dL POC Glucometer 272 H (74 to 106) mg/dL Calcium 8.5 (8.4-10.2) mg/dL Magnesium (1.6-2.3) mg/dL Total Bilirubin (0.2-1.3) mg/dL AST (14-36) U/L ALT (0-35) U/L Alkaline Phosphatase (38-126) U/L Serum Total Protein (6.3-8.2) g/dL Albumin (3.5-5.0) g/dL Random Vancomycin ug/mL Slides for Path Review YES 11/02/21 11/02/21 11/02/21 Range/Units 16:13 20:41 21:35 WBC (4.0-10.5) x10^3/uL RBC (4.1-5.4) x10^6/uL Hgb (12.0-16.0) g/dL Hct (35-47) % MCV (78-100) fL MCH (26-32) pg MCHC (32-36) g/dL RDW (11.5-14.0) % Plt Count (150-450) x10^3/uL MPV (7.5-11.0) fL Gran % (36.0-66.0) % Immature Gran % (Auto) (0.00-0.4) % Nucleat RBC Rel Count (0.00-0.1) % Eos # (Auto) (0-0.5) x10^3/uL Immature Gran # (Auto) (0.00-0.03) x10^3u/L Absolute Lymphs (auto) (1.0-4.6) x10^3/uL Absolute Monos (auto) (0.0-1.3) x10^3/uL Absolute Nucleated RBC (0.00-0.01) x10^3u/L Lymphocytes % (24.0-44.0) % Monocytes % (0.0-12.0) % Eosinophils % (0.00-5.0) % Basophils % (0.0-0.4) % Absolute Granulocytes (1.4-6.9) x10^3/uL Basophils # (0-0.4) x10^3/uL Sodium (137-145) mmol/L Potassium (3.5-5.1) mmol/L Chloride (98-107) mmol/L Carbon Dioxide (22-30) mmol/L Anion Gap (5-15) MEQ/L BUN (7-17) mg/dL Creatinine (0.52-1.04) mg/dL Estimated GFR ML/MIN Glucose (74-106) mg/dL POC Glucometer 292 H 365 H (74 to 106) mg/dL Calcium (8.4-10.2) mg/dL Magnesium (1.6-2.3) mg/dL Total Bilirubin (0.2-1.3) mg/dL AST (14-36) U/L ALT (0-35) U/L Alkaline Phosphatase (38-126) U/L Serum Total Protein (6.3-8.2) g/dL Albumin (3.5-5.0) g/dL Random Vancomycin < 5.00 ug/mL Slides for Path Review 11/03/21 11/03/21 11/03/21 Range/Units 04:55 04:55 08:05 WBC 3.9 L (4.0-10.5) x10^3/uL RBC 2.63 L (4.1-5.4) x10^6/uL Hgb 7.4 L (12.0-16.0) g/dL Hct 24.4 L (35-47) % MCV 92.8 (78-100) fL MCH 28.1 (26-32) pg MCHC 30.3 L (32-36) g/dL RDW 15.4 H (11.5-14.0) % Plt Count 62 L (150-450) x10^3/uL MPV 10.0 (7.5-11.0) fL Gran % 65.6 (36.0-66.0) % Immature Gran % (Auto) 0.5 H (0.00-0.4) % Nucleat RBC Rel Count 0.0 (0.00-0.1) % Eos # (Auto) 0.31 (0-0.5) x10^3/uL Immature Gran # (Auto) 0.02 (0.00-0.03) x10^3u/L Absolute Lymphs (auto) 0.49 L (1.0-4.6) x10^3/uL Absolute Monos (auto) 0.49 (0.0-1.3) x10^3/uL Absolute Nucleated RBC 0.00 (0.00-0.01) x10^3u/L Lymphocytes % 12.6 L (24.0-44.0) % Monocytes % 12.6 H (0.0-12.0) % Eosinophils % 7.9 H (0.00-5.0) % Basophils % 0.8 (0.0-0.4) % Absolute Granulocytes 2.56 (1.4-6.9) x10^3/uL Basophils # 0.03 (0-0.4) x10^3/uL Sodium 133 L (137-145) mmol/L Potassium 4.1 (3.5-5.1) mmol/L Chloride 97 L (98-107) mmol/L Carbon Dioxide 30 (22-30) mmol/L Anion Gap 9.7 (5-15) MEQ/L BUN 36 H (7-17) mg/dL Creatinine 2.13 H (0.52-1.04) mg/dL Estimated GFR 23.8 ML/MIN Glucose 231 H (74-106) mg/dL POC Glucometer 178 H (74 to 106) mg/dL Calcium 8.8 (8.4-10.2) mg/dL Magnesium 1.7 (1.6-2.3) mg/dL Total Bilirubin 0.60 (0.2-1.3) mg/dL AST 36 (14-36) U/L ALT 16 (0-35) U/L Alkaline Phosphatase 112 (38-126) U/L Serum Total Protein 6.7 (6.3-8.2) g/dL Albumin 3.1 L (3.5-5.0) g/dL Random Vancomycin ug/mL Slides for Path Review Micro Results-Entire Visit: Microbiology 10/31/21 17:45 Blood Culture - Preliminary Blood NO GROWTH TO DATE 10/31/21 17:40 Blood Culture - Preliminary Blood NO GROWTH TO DATE Accuchecks Date 11/02/21 Date 11/02/21 Date 11/02/21 Time 22:00 Time 16:37 Time 11:34 - Procedures and Test Procedures and Tests throughout Hospitalization: Therapy Orders & Screens 10/31/21 16:47 EKG ROUTINE Comment: Discharge Exam General Appearance: obese Neurologic Exam: alert, oriented x 3 Respiratory Exam: normal breath sounds, lungs clear, No respiratory distress Cardiovascular Exam: regular rate/rhythm, normal heart sounds Gastrointestinal/Abdomen Exam: other (mild induration to lower abdomen, erythema and warmth dramatically improved. soft) Extremity Exam: normal inspection, normal range of motion Wound Assessment: Skin/Wound Assessment Wound/Incision Assessment Start: 10/31/21 17:21 Text: Status: Active Freq: Q6H Protocol: Document 11/03/21 02:00 (Rec: 11/03/21 02:06 [id number]) Wound/Incision Assessment Abdomen Wound Assessment Shift Assessment Wound Type cellulitis Wound Stage Non Pressure Wound General Appearance Open to air Surrounding Tissue [place] Comment reddened and warm to touch Wound Photo Photo Taken No Final Diagnosis/Problem List - Final Discharge Diagnosis/Problem (1) Abdominal wall cellulitis Current Visit: Yes Status: Acute Assessment & Plan: home on po levaquin and flagyl at this time. Code(s): L03.311 - CELLULITIS OF ABDOMINAL WALL (2) C. difficile colitis Current Visit: Yes Status: Acute Assessment & Plan: po flagyl, has had very mild course Code(s): A04.72 - ENTEROCOLITIS D/T CLOSTRIDIUM DIFFICILE, NOT SPCF RECUR (3) Cirrhosis Current Visit: Yes Status: Chronic (4) Diabetes mellitus type II, uncontrolled Current Visit: Yes Status: Chronic Code(s): SOA4759 - (5) Obesity Current Visit: Yes Status: Chronic Code(s): E66.9 - OBESITY, UNSPECIFIED - Discharge Disposition: Home, Self-Care Condition: Stable Prescriptions: New Metronidazole 500 mg [Flagyl 500 MG] 500 mg PO TID #30 tablet Levofloxacin [Levofloxacin 500 MG Tablet] 500 mg PO DAILY #7 tablet Continue Gabapentin 300 mg PO BID Spironolactone 100 mg PO DAILY Losartan Potassium 100 mg PO DAILY Furosemide 40 mg [Lasix 40 MG] 40 mg PO BID Glipizide 5 mg [Glucotrol 5 MG] 10 mg PO BID Insulin Detemir [Levemir] 15 - 30 unit SQ DAILY Additional Instructions: FOLLOW UP WITH YOUR SURGEON IN [place] AFTER DISCHARGE Follow up with: MARIBELL KAPOOR NP [Primary Care Provider] -
[2021-11-03] MEDS: VANCOMYCIN HCL CAPSULE PO SCH (09:22)
[2021-11-03] MEDS: HUMALOG SQ PRN ×2 (09:22→12:30)
[2021-11-03] MEDS: Lantus Insulin SQ SCH (09:24)
[2021-11-03] MEDS: Aldactone 25 MG PO SCH (10:40)
[2021-11-03 11:41] LABS: Slide Review 1 YES
[2021-11-03 12:41] VITALS: BP 130/61; PULSE 90
== END 2021-11-03 12:33 | disposition home or self-care (01) | DRG 603 ==
LOC: MED SURG 09:11 → OBSVTOIN 11-01 09:11
PROVIDERS: ADMIT Family Medicine; ATTEND Family Medicine
DX: L03.311 Cellulitis of abdominal wall (principal); A04.72 Enterocolitis due to Clostridium difficile, not specified as recurrent; E87.1 Hypo-osmolality and hyponatremia; K74.60 Unspecified cirrhosis of liver; I12.9 Hypertensive chronic kidney disease with stage 1 through stage 4 chronic kidney disease, or unspecified chronic kidney disease; E11.65 Type 2 diabetes mellitus with hyperglycemia; E11.22 Type 2 diabetes mellitus with diabetic chronic kidney disease; N18.30 Chronic kidney disease, stage 3 unspecified; E66.9 Obesity, unspecified; E03.9 Hypothyroidism, unspecified; D64.9 Anemia, unspecified; E87.5 Hyperkalemia; K21.9 Gastro-esophageal reflux disease without esophagitis; Z79.899 Other long term (current) drug therapy; Z20.828 Contact with and (suspected) exposure to other viral communicable diseases; Z29.9 Encounter for prophylactic measures, unspecified
CPT/HCPCS: 0241U; 36415; 71046; 74018; 74176; 80048; 80053; 80202; 82947; 83036; 83735; 85025; 87040; 87493; 93005; G0378; J1817; J2543; J3370; A9270-GY

== ENCOUNTER 2022-08-06 10:51 | Emergency (ER) | payer MEDICARE, OTHER ==
--- NOTE | 2022-08-06 11:06 | ERPHSYRPT ---
- History of Present Illness Time Seen by Provider: 08/06/22 11:06 Source: patient Exam Limitations: no limitations Physician History: This is an obese 81-year-old white female patient who has a history of hypertension, diabetes and is on diuretics occasionally for mild CHF. She also has a history of chronic COPD. She is a former smoker of cigarettes. In the last 5 to 6 days she has noticed increased swelling in both of her lower extremities below the knees with associated weeping of fluid. She does not typically have this type of symptomatology. She does not currently have chest pain or significant shortness of breath but she has had on occasion. She does see a sales agent protective service and has a tractor technician for her chronic renal disease. She also sees a specialist in gastroenterology for chronic liver disease (cirrhosis). She also has a history of peripheral neuropathy. Method of Injury: other Occurred: days ago (No injury 5 to 6 days ago) Severity of Pain-Max: mild Severity of Pain-Current: mild Lower Extremities Pain: leg: bilateral (Lower leg below the knee swelling), foot: bilateral (Swelling), ankle: bilateral (Swelling) Modifying Factors: Improves With: nothing Associated Symptoms: none Allergies/Adverse Reactions: No Known Drug Allergies Allergy (Unverified 10/31/21 17:36) Home Medications: Furosemide 40 mg [Lasix 40 MG] 40 mg PO BID 10/31/21 [History] Gabapentin 600 mg PO TID 10/31/21 [History] Losartan Potassium 100 mg PO DAILY 10/31/21 [History] Spironolactone 50 mg PO BID 10/31/21 [History] Albuterol 8 gm Mdi Hfa [Ventolin Hfa MDI] 18 gm IH DAILY 08/06/22 [History] Insulin Degludec [Tresiba Flextouch U-100] 20 unit SQ DAILY 08/06/22 [History] Lactulose [Lactulose 20 gm/30Ml Ud Cup] 1 ea BID 08/06/22 [History] Magnesium Amino Acid Chelate [Magnesium] 300 mg PO BID 08/06/22 [History] Melatonin 5 mg PO DAILY 08/06/22 [History] Montelukast Sodium 10 mg [Singulair 10 MG] 10 mg PO DAILY 08/06/22 [History] Multivitamin [Multi-Vitamin Daily] 1 ea DAILY 08/06/22 [History] Ropinirole HCl 1 mg PO DAILY 08/06/22 [History] Vit B Complx C/Folic Acid/Zinc [Dialyvite 800-Zinc 15 mg Tab] 1 ea DAILY 08/06/22 [History] Travel Risk - International Travel Have you traveled outside of the country in past 3 weeks: No - Coronavirus Screening Are you exhibiting any of the following symptoms?: No Close contact with a COVID-19 positive Pt in past 14-21 Days: No - Vaccine Status Have you recieved a Covid-19 vaccination: Yes Retort Setter: Unknown - Vaccination Dates Dates if Unknown: 2021 - Review of Systems Constitutional: No Symptoms Eyes: No Symptoms Ears, Nose, & Throat: No Symptoms Respiratory: No Symptoms Cardiac: No Symptoms Abdominal/Gastrointestinal: No Symptoms Genitourinary Symptoms: No Symptoms Musculoskeletal: No Symptoms Skin: No Symptoms Neurological: No Symptoms Psychological: No Symptoms Endocrine: No Symptoms Hematologic/Lymphatic: No Symptoms Immunological/Allergic: No Symptoms All Other Systems: Reviewed and Negative - Past Medical History Pertinent Past Medical History: Yes Neurological History: Peripheral Neuropathy ENT History: No Pertinent History Cardiac History: No Pertinent History Respiratory History: Asthma Endocrine Medical History: Diabetes Type II, Hypothyroidism Musculoskeletal History: Arthritis, Osteoarthritis GI Medical History: Cirrhosis, Hernia History: Renal Disease Female Reproductive Disorders: No Pertinent History Other Medical History: KIDNEY DISEASE, STATES KIDNEY'S WORK AT 1/3 ANEMIA, VERACES - Past Surgical History Past Surgical History: Yes Cardiac: No Pertinent History Respiratory: No Pertinent History Gastrointestinal: Hernia Repair Genitourinary: No Pertinent History Musculoskeletal: Orthopedic Surgery Female Surgical History: No Pertinent History Other Surgical History: L AND RIGHT KNEE REPLACEMENT; LEFT HIP REPLACEMENT; HERNIA REPAIR X 2; - Social History Smoking Status: Former smoker Drug Use: none - Nursing Vital Signs Nursing Vital Signs: Initial Vital Signs Pulse Rate 81 08/06/22 11:06 Respiratory Rate 13 08/06/22 11:06 Blood Pressure 152/59 08/06/22 11:06 O2 Sat by Pulse Oximetry 96 08/06/22 11:06 Pain Scale Pain Intensity 0 - Physical Exam General Appearance: no apparent distress, alert, anxiety, obese Eyes, Ears, Nose, Throat Exam: normal ENT inspection, moist mucous membranes Neck Exam: normal inspection, non-tender, supple, full range of motion Cardiovascular/Respiratory Exam: chest non-tender, normal breath sounds, regular rate/rhythm, heart sounds normal, no respiratory distress Gastrointestinal/Abdominal Exam: non-tender Back Exam: normal inspection, normal range of motion, No CVA tenderness, No vertebral tenderness Hips Exam: bilateral: non-tender, normal inspection, normal range of motion, no evidence of injury Legs Exam: bilateral leg: swelling (Bilateral below-knee) Knees Exam: bilateral knee: non-tender, normal inspection, normal range of motion, no evidence of injury Ankle Exam: bilateral ankle: swelling (Bilateral) Foot Exam: bilateral foot: swelling (Bilateral) Neuro/Tendon Exam: normal sensation, normal motor functions, normal tendon functions, responds to pain, no evidence tendon injury Mental Status Exam: alert, oriented x 3, cooperative Skin Exam: normal color, warm, dry SpO2 Interpretation: normal O2 Delivery: Room Air - Course Nursing assessment & vital signs reviewed: Yes EKG Interpreted by Me: RATE (79), NORMAL AXIS, NORMAL INTERVALS, Right Bundle Branch Block, Other (No acute ischemic changes on today's twelve-lead EKG) Ordered Tests: Active Orders 24 hr Category Date Time Status EKG-ER Only STAT Care 08/06/22 11:24 Active IV Insertion STAT Care 08/06/22 11:24 Active Pulse Oximetry (ED) STAT Care 08/06/22 11:24 Active VENOUS BILATERAL EXTREMITY [US] Stat Exams 08/06/22 12:55 Completed CBC W DIFF Stat Lab 08/06/22 11:35 Completed CMP Stat Lab 08/06/22 11:35 Completed D-DIMER QUANTITATIVE Stat Lab 08/06/22 11:35 Completed MAGNESIUM Stat Lab 08/06/22 11:35 Completed NT PRO BNPII Stat Lab 08/06/22 11:35 Completed TROPONIN Q4H Lab 08/06/22 11:35 Completed TROPONIN Q4H Lab 08/06/22 14:25 Completed TROPONIN Q4H Lab 08/06/22 19:30 Ordered Lab/Rad Data: Laboratory Result Diagrams 08/06/22 11:35 08/06/22 11:35 Laboratory Results 08/06/22 08/06/22 08/06/22 Range/Units 14:25 11:35 11:35 WBC (4.0-10.5) x10^3/uL RBC (4.1-5.4) x10^6/uL Hgb (12.0-16.0) g/dL Hct (35-47) % MCV (78-100) fL MCH (26-32) pg MCHC (32-36) g/dL RDW (11.5-14.0) % Plt Count (150-450) x10^3/uL MPV (7.5-11.0) fL Gran % (36.0-66.0) % Immature Gran % (Auto) (0.00-0.4) % Nucleat RBC Rel Count (0.00-0.1) % Eos # (Auto) (0-0.5) x10^3/uL Immature Gran # (Auto) (0.00-0.03) x10^3u/L Absolute Lymphs (auto) (1.0-4.6) x10^3/uL Absolute Monos (auto) (0.0-1.3) x10^3/uL Absolute Nucleated RBC (0.00-0.01) x10^3u/L Lymphocytes % (24.0-44.0) % Monocytes % (0.0-12.0) % Eosinophils % (0.00-5.0) % Basophils % (0.0-0.4) % Absolute Granulocytes (1.4-6.9) x10^3/uL Basophils # (0-0.4) x10^3/uL D-Dimer 1.13 H* (0.0-0.50) mg/L Sodium (137-145) mmol/L Potassium (3.5-5.1) mmol/L Chloride (98-107) mmol/L Carbon Dioxide (22-30) mmol/L Anion Gap (5-15) MEQ/L BUN (7-17) mg/dL Creatinine (0.52-1.04) mg/dL Estimated GFR ML/MIN Glucose (74-106) mg/dL Calcium (8.4-10.2) mg/dL Magnesium (1.6-2.3) mg/dL Total Bilirubin (0.2-1.3) mg/dL AST (14-36) U/L ALT (0-35) U/L Alkaline Phosphatase (38-126) U/L Troponin I 0.032 0.033 (0.000-0.034) ng/mL NT-Pro-B Natriuret Pep 698 (<300) pg/mL Serum Total Protein (6.3-8.2) g/dL Albumin (3.5-5.0) g/dL Slides for Path Review 08/06/22 08/06/22 Range/Units 11:35 11:35 WBC 5.7 (4.0-10.5) x10^3/uL RBC 3.03 L (4.1-5.4) x10^6/uL Hgb 9.7 L (12.0-16.0) g/dL Hct 29.4 L (35-47) % MCV 97.0 (78-100) fL MCH 32.0 (26-32) pg MCHC 33.0 (32-36) g/dL RDW 15.3 H (11.5-14.0) % Plt Count 96 L (150-450) x10^3/uL MPV 9.4 (7.5-11.0) fL Gran % 71.1 H (36.0-66.0) % Immature Gran % (Auto) 0.3 (0.00-0.4) % Nucleat RBC Rel Count 0.0 (0.00-0.1) % Eos # (Auto) 0.58 H (0-0.5) x10^3/uL Immature Gran # (Auto) 0.02 (0.00-0.03) x10^3u/L Absolute Lymphs (auto) 0.58 L (1.0-4.6) x10^3/uL Absolute Monos (auto) 0.40 (0.0-1.3) x10^3/uL Absolute Nucleated RBC 0.00 (0.00-0.01) x10^3u/L Lymphocytes % 10.1 L (24.0-44.0) % Monocytes % 7.0 (0.0-12.0) % Eosinophils % 10.1 H (0.00-5.0) % Basophils % 1.4 (0.0-0.4) % Absolute Granulocytes 4.07 (1.4-6.9) x10^3/uL Basophils # 0.08 (0-0.4) x10^3/uL D-Dimer (0.0-0.50) mg/L Sodium 135 L (137-145) mmol/L Potassium 4.4 (3.5-5.1) mmol/L Chloride 98 (98-107) mmol/L Carbon Dioxide 30 (22-30) mmol/L Anion Gap 11.8 (5-15) MEQ/L BUN 28 H (7-17) mg/dL Creatinine 1.91 H (0.52-1.04) mg/dL Estimated GFR 26.9 ML/MIN Glucose 248 H (74-106) mg/dL Calcium 9.1 (8.4-10.2) mg/dL Magnesium 2.5 H (1.6-2.3) mg/dL Total Bilirubin 2.90 H (0.2-1.3) mg/dL AST 68 H (14-36) U/L ALT 22 (0-35) U/L Alkaline Phosphatase 163 H (38-126) U/L Troponin I (0.000-0.034) ng/mL NT-Pro-B Natriuret Pep (<300) pg/mL Serum Total Protein 6.9 (6.3-8.2) g/dL Albumin 3.1 L (3.5-5.0) g/dL Slides for Path Review YES - Progress Progress: improved, re-examined Progress Note: 08/06/22 15:03 Bilateral lower extremity venous Doppler shows no evidence of DVT. This was reported to me by the electrical electronics technician. The patient's medical issue is 1 of moderate complexity. Level complexity and the work-up performed is based on review of the patient's past medical history, review of the patient's medication list, review of the patient's drug allergy list, history present illness and physical findings on examination. The work-up in this patient includes a troponin level, D-dimer level, CBC, CMP, twelve-lead EKG. I reviewed the results of the study. The D-dimer was elevated and therefore we performed the bilateral lower extremity venous Doppler with the above-stated findings. Patient has not had chest pain here in the emergency department. She has had 2 twelve-lead EKGs which do not show any acute ischemic changes. The second twelve-lead EKG was done at approximately 1500 p.m. today on 08/06/2022. It shows the same findings of normal sinus rhythm. Patient has a heart rate of 78 bpm on this second twelve-lead EKG with right bundle branch block. Normal axis deviation. Normal intervals without evidence of any acute ischemic changes. At the time of this discharge the patient has no chest pain and no shortness of breath. The repeat, 3-hour troponin level is in the normal range and slightly lower than the initial troponin level which was also in the normal range Counseled pt/family regarding: lab results, diagnosis, need for follow-up, rad results Medical Desision Making - Independent Historian Additional History obtained from: Spouse - Diagnostic Testing Radiological Interpretation: Reviewed by me, Teleradiologist Report - Risk of complications Low Risk: Low risk of morbidity from additional dx testing or treatment - Departure Departure Disposition: Home Clinical Impression: Symptom of leg swelling Condition: Stable Critical Care Time: No Referrals: MARIBELL KAPOOR NP [Primary Care Provider] - Follow up/PCP as directed Additional Instructions: take your medications as prescribed. follow up with primary care doctor, sales agent protective service, tractor technician and liver specialist tomorrow, for further evaluation and management.
[2022-08-06 11:49] LABS: Absolute Neutrophil Ct (ANC) 4.07 x10^3/uL (1.4-6.9); BASOPHIL % 1.4 % (0.0-0.4); Basophil (Absolute #) 0.08 x10^3/uL (0-0.4); Eosinophil % 10.1 % (0.00-5.0); Eosinophil (Absolute #) 0.58 x10^3/uL (0-0.5); Hematocrit 29.4 % (35-47); Hemoglobin 9.7 g/dL (12.0-16.0); IMMATURE GRAN # 0.02 x10^3u/L (0.00-0.03); IMMATURE GRAN % 0.3 % (0.00-0.4); Lymphocyte (Absolute #) 0.58 x10^3/uL (1.0-4.6); Lymphocytes % 10.1 % (24.0-44.0); Mean Platelet Volume 9.4 fL (7.5-11.0); Neutrophil % 71.1 % (36.0-66.0); Platelet Count 96 x10^3/uL (150-450); Red Blood Count 3.03 x10^6/uL (4.1-5.4); Red Cell Distribution Width 15.3 % (11.5-14.0); White Blood Count 5.7 x10^3/uL (4.0-10.5)
[2022-08-06 12:02] LABS: ALBUMIN 3.1 g/dL (3.5-5.0); ANION GAP 11.8 MEQ/L (5-15); BILIRUBIN,TOTAL 2.9 mg/dL (0.2-1.3); Calcium 9.1 mg/dL (8.4-10.2); Creatinine 1 1.91 mg/dL (0.52-1.04); EST GLOMERULAR FILTRATION RATE 26.9 ML/MIN; MAGNESIUM 2.5 mg/dL (1.6-2.3); Potassium 4.4 mmol/L (3.5-5.1); Total Protein 6.9 g/dL (6.3-8.2)
[2022-08-06 12:13] LABS: TROPONIN 0.033 ng/mL (0.000-0.034)
[2022-08-06 12:58] LABS: Slide Review 1 YES
--- NOTE | 2022-08-06 13:55 | XRAY ---
Indication: Bilateral lower extremity pain and swelling. Two-dimensional sonogram and color Doppler imaging of the major venous vessels of the left and right leg performed. Comparison: None No thrombus seen in the examined deep venous vessels of the left and right leg including greater saphenous vein. Veins demonstrate normal compressibility. Venous waveforms are normal with and without augmentation. Impression: Left and right legs negative for DVT.
[2022-08-06 15:09] VITALS: BP 142/52; PULSE 80; O2SAT 95
== END 2022-08-06 15:17 | disposition home or self-care (01) ==
LOC: ED 10:51
DX: M79.89 Other specified soft tissue disorders (principal); I13.0 Hypertensive heart and chronic kidney disease with heart failure and stage 1 through stage 4 chronic kidney disease, or unspecified chronic kidney disease; I50.9 Heart failure, unspecified; E11.22 Type 2 diabetes mellitus with diabetic chronic kidney disease; N18.9 Chronic kidney disease, unspecified; E11.42 Type 2 diabetes mellitus with diabetic polyneuropathy; Z79.4 Long term (current) use of insulin; Z79.899 Other long term (current) drug therapy
CPT/HCPCS: 36000; 36415; 80053; 83735; 83880; 84484; 85025; 85379; 93005; 93970; 94760; 99284

== ENCOUNTER 2024-06-22 13:19 | Emergency (ER) | payer MEDICARE, OTHER ==
[2024-06-22 13:47] VITALS: TEMP 96.6
--- NOTE | 2024-06-22 14:08 | XRAY ---
Indication: Pneumonia. Comparison: October 31, 2021 Portable apical lordotic chest again hyperinflated and is now clear with stable incidental tiny left perihilar calcified granuloma. Heart now enlarged. Bony thorax intact again with osteopenia and mild degenerative changes. New intrahepatic portosystemic shunt. Impression: Nonacute chest with chronic features.
--- NOTE | 2024-06-22 14:25 | ERPHSYRPT ---
- History of Present Illness Time Seen by Provider: 06/22/24 13:42 Source: patient, family Exam Limitations: no limitations Patient Subjective Stated Complaint: Pt states "Since last saturday I have been coughing and having a hard time getting up my phlegm." Triage Nursing Assessment: Pt presented alert and oriented X 3, skin wpd. Pt ambulatewith assistance. PT voice is hoarse, able to speak in clear full sentences. PT resting comfortably on the bed. Physician History: Patient is here with 1 week of shortness of breath, cough, struggling to catch her breath. Patient states that she called her PCP was sent to the ER today. No active chest pain. States that she has been coughing up phlegm. No fevers. Here patient is in A-fib on the monitor, appears uncomfortable. EKG demonstrates atrial fibrillation, right bundle branch block, rate of 109, QRS 159, QTc is 542 Allergies/Adverse Reactions: No Known Drug Allergies Allergy (Unverified 02/10/24 16:19) Home Medications: Gabapentin 600 mg PO TID 10/31/21 [History] Spironolactone 50 mg PO BID 10/31/21 [History] Albuterol 8 gm Mdi Hfa [Ventolin Hfa MDI] 18 gm IH DAILY 08/06/22 [History] Insulin Degludec [Tresiba Flextouch U-100] 20 unit SQ DAILY 08/06/22 [History] Magnesium Amino Acid Chelate [Magnesium] 300 mg PO BID 08/06/22 [History] Melatonin 5 mg PO DAILY 08/06/22 [History] Montelukast Sodium 10 mg [Singulair 10 MG] 10 mg PO DAILY 08/06/22 [History] Multivitamin [Multi-Vitamin Daily] 1 ea DAILY 08/06/22 [History] Ropinirole HCl 1 mg PO DAILY 08/06/22 [History] Vit B Complx C/Folic Acid/Zinc [Dialyvite 800-Zinc 15 mg Tab] 1 ea DAILY 08/06/22 [History] Torsemide 20 mg [Demadex 20 mg] 20 mg PO BID 01/06/24 [History] Ferrous Sulfate 325 mg PO UD 04/17/24 [History] Folic Acid 1 mg PO UD 04/17/24 [History] Hydrocodone/Acetaminophen [Hydrocodone-Acetamin 5-325 mg] 1 tab PO UD 04/17/24 [History] Levothyroxine Sodium 100 Mcg [Synthroid 100 Mcg] 100 mcg PO UD 04/17/24 [History] Metolazone 2.5 mg [Zaroxolyn 2.5 MG] 2.5 mg PO UD 04/17/24 [History] PANTOPRAZOLE 40 mg Tablet [Protonix 40MG Tablet] 40 mg PO UD 04/17/24 [History] Potassium Chloride 20 meq PO UD 04/17/24 [History] Hx Tetanus, Diphtheria Vaccination/Date Given: No Hx Influenza Vaccination/Date Given: No Hx Pneumococcal Vaccination/Date Given: No Immunizations Up to Date: No Travel Risk - International Travel Have you traveled outside of the country in past 3 weeks: No - Emerging Infectious Disease Are you exhibiting symptoms associated with any current EIDs: No - Past Medical History Pertinent Past Medical History: Yes Neurological History: Peripheral Neuropathy ENT History: No Pertinent History Cardiac History: No Pertinent History Respiratory History: Asthma, COPD Endocrine Medical History: Diabetes Type II, Hypothyroidism Musculoskeletal History: Arthritis, Osteoarthritis GI Medical History: Hernia, Cirrhosis History: Renal Disease Female Reproductive Disorders: No Pertinent History Other Medical History: KIDNEY DISEASE, STATES KIDNEY'S WORK AT 1/3 ANEMIA, VERACES - Past Surgical History Past Surgical History: Yes Cardiac: No Pertinent History Respiratory: No Pertinent History Gastrointestinal: Hernia Repair Genitourinary: No Pertinent History Musculoskeletal: Orthopedic Surgery Female Surgical History: No Pertinent History Other Surgical History: L AND RIGHT KNEE REPLACEMENT; LEFT HIP REPLACEMENT; HERNIA REPAIR X 2; - Social History Smoking Status: Former smoker Exposure to second hand smoke: Yes Drug Use: none - Social Determinants of Health Will the patient participate in the screening: Declined to provide - Nursing Vital Signs Nursing Vital Signs: Initial Vital Signs Temperature 96.6 F 06/22/24 13:41 Pulse Rate 110 H 06/22/24 13:41 Respiratory Rate 22 06/22/24 13:41 Blood Pressure 111/73 06/22/24 13:41 O2 Sat by Pulse Oximetry 98 06/22/24 13:41 Pain Scale Pain Intensity 0 - Physical Exam SpO2: 98 Comments: 06/22/24 14:24 Review of Systems Constitutional: Negative for fever. HENT: Negative for congestion. Respiratory: Wheezes, cough, cold, congestion Cardiovascular: Negative for chest pain. Gastrointestinal: Negative for abdominal pain. Genitourinary: Negative for dysuria. Musculoskeletal: Negative for back pain. Skin: Negative for rash. Neurological: Negative for headaches. Psychiatric/Behavioral: Negative for behavioral problems. All other systems reviewed and are negative. Physical Exam Vitals signs and nursing note reviewed. Constitutional: Appearance: Patient is well-developed. HENT: Head: Normocephalic and atraumatic. Eyes: Conjunctiva/sclera: Conjunctivae normal. Neck: Musculoskeletal: Normal range of motion. Trachea: No tracheal deviation. Cardiovascular: Rate and Rhythm: A-fib with RVR, right bundle branch block Pulmonary: Effort: Wheezes throughout, appears uncomfortable Abdominal: Palpations: Abdomen is soft. Musculoskeletal: General: No deformity. Skin: General: Skin is warm and dry. Neurological/ Psychiatric: Mental Status: Mental status, behavior, interaction with environment is appropriate for patient's age and condition - Course Nursing assessment & vital signs reviewed: Yes EKG Interpreted by Me: Anastasia (My interpretation rate of 109) Ordered Tests: Active Orders 24 hr Category Date Time Status Palliative Medicine Physician STAT Care 06/22/24 13:44 Active EKG-ER Only STAT Care 06/22/24 13:43 Active IV Insertion STAT Care 06/22/24 13:43 Active CHEST 1 VIEW (PORTABLE) Stat Exams 06/22/24 13:44 Completed CBC W DIFF Stat Lab 06/22/24 14:20 Completed CMP Stat Lab 06/22/24 14:20 Completed CULTURE,URINE Stat Lab 06/22/24 14:15 Received NT PRO BNPII Stat Lab 06/22/24 14:20 Completed PROTIME WITH INR Stat Lab 06/22/24 14:20 Completed TROPONIN Q4H Lab 06/22/24 14:20 Completed TROPONIN Q4H Lab 06/22/24 17:45 Received TROPONIN Q4H Lab 06/22/24 21:45 Ordered UA W/RFX UR CULTURE Stat Lab 06/22/24 14:15 Completed Medication Summary Discontinued Medications Generic Name Dose Route Start Last Admin Trade Name Freq PRN Reason Stop Dose Admin Albuterol/Ipratropium 3 ml 06/22/24 13:43 06/22/24 14:28 Ipratropium/Albuterol Sulfate 3 Ml Ampul.Neb IH 06/22/24 13:44 3 ml STAT ONE Administration Albuterol/Ipratropium Confirm 06/22/24 14:26 Ipratropium/Albuterol Sulfate 3 Ml Ampul.Neb Administered 06/22/24 14:27 Dose 3 ml IH .STK-MED ONE Aspirin 324 mg 06/22/24 13:44 06/22/24 14:45 Aspirin 81 Mg Tab.Chew PO 06/22/24 13:45 Not Given STAT ONE Aspirin Confirm 06/22/24 14:35 Aspirin 81 Mg Tab.Chew Administered 06/22/24 14:36 Dose 324 mg .ROUTE .STK-MED ONE Methylprednisolone Sodium 0 mg 06/22/24 13:43 06/22/24 14:39 Succinate 125 mg/ Sterile IV 06/22/24 13:44 125 mg Water 2 ml STAT ONE Administration Diltiazem HCl 10 mg 06/22/24 16:05 06/22/24 16:22 Diltiazem 25 Mg/5 Ml Vial IV 06/22/24 16:06 Not Given ONCE ONE Diltiazem HCl Confirm 06/22/24 16:21 Diltiazem Hcl Iv 5 Mg/Ml Vial Administered 06/22/24 16:22 Dose 50 mg IV .STK-MED ONE Diltiazem HCl 10 mg 06/22/24 16:21 06/22/24 16:23 Diltiazem Hcl Iv 5 Mg/Ml Vial IV 06/22/24 16:22 10 mg STAT ONE Administration Sodium Chloride 1,000 mls @ 999 mls/hr 06/22/24 15:00 06/22/24 16:11 Sodium Chloride 0.9% 1000 Ml IV 06/22/24 16:00 Infused .Q1H1M STA Infusion Sodium Chloride Confirm 06/22/24 15:02 Sodium Chloride 0.9% 1000 Ml Administered 06/22/24 15:03 Dose 1,000 mls @ ud .ROUTE .STK-MED ONE Piperacillin Sod/Tazobactam 100 mls @ 200 mls/hr 06/22/24 15:13 06/22/24 16:11 Sod 3.375 gm/ Sodium Chloride IV 06/22/24 15:42 Infused STAT STA Infusion Sodium Chloride Confirm 06/22/24 15:19 Sodium Chloride 0.9% Administered 06/22/24 15:20 Dose 100 mls @ ud .ROUTE .STK-MED ONE Methylprednisolone Sodium Succinate Confirm 06/22/24 14:35 Methylprednis Sod Succ 125 Mg/2 Ml Vial Administered 06/22/24 14:36 Dose 125 mg .ROUTE .STK-MED ONE Piperacillin Sod/Tazobactam Sod Confirm 06/22/24 15:19 Piperacillin/Tazobactam Sodium 3.375 Gm Vial Administered 06/22/24 15:20 Dose 3.375 gm IV .STK-MED ONE Sterile Water Confirm 06/22/24 14:34 Water For Injection,Sterile 10 Ml Vial Administered 06/22/24 14:35 Dose 10 ml IJ .STK-MED ONE Lab/Rad Data: Laboratory Result Diagrams 06/22/24 14:20 06/22/24 14:20 Laboratory Results 06/22/24 06/22/24 06/22/24 Range/Units 14:20 14:20 14:20 WBC (3.98-10.04) x10^3/uL RBC (3.93-5.22) x10^6/uL Hgb (11.2-15.7) g/dL Hct (34.1-44.9) % MCV (79.4-94.8) fL MCH (25.6-32.2) pg MCHC (32.2-35.5) g/dL RDW (11.7-14.4) % Plt Count (182-369) x10^3/uL MPV (9.4-12.3) fL Gran % (34.0-71.1) % Immature Gran % (Auto) (0.001-0.429) % Nucleat RBC Rel Count (0.00-0.2) % Eos # (Auto) (0.04-0.36) x10^3/uL Immature Gran # (Auto) (0.001-0.031) x10^3u/L Absolute Lymphs (auto) (1.18-3.74) x10^3/uL Absolute Monos (auto) (0.24-0.86) x10^3/uL Absolute Nucleated RBC (0.00-0.012) x10^3u/L Lymphocytes % (19.3-51.7) % Monocytes % (4.7-12.5) % Eosinophils % (0.7-5.8) % Basophils % (0.1-1.2) % Absolute Granulocytes (1.56-6.13) x10^3/uL Basophils # (0.01-0.08) x10^3/uL PT 13.8 H (9.4-12.5) SECONDS INR 1.29 (0.8-3.0) Sodium (135-145) mmol/L Potassium (3.5-5.1) mmol/L Chloride (98-107) mmol/L Carbon Dioxide (22-30) mmol/L Anion Gap (5-15) MEQ/L BUN (7-17) mg/dL Creatinine (0.52-1.04) mg/dL Estimated GFR ML/MIN Glucose (74-106) mg/dL Calcium (8.4-10.2) mg/dL Total Bilirubin (0.2-1.3) mg/dL AST (14-36) U/L ALT (0-35) U/L Alkaline Phosphatase (38-126) U/L Troponin I 0.181 H* (0.000-0.033) ng/mL NT-Pro-B Natriuret Pep 7280 (<300) pg/mL Serum Total Protein (6.3-8.2) g/dL Albumin (3.5-5.0) g/dL Urine Color (Yellow) Urine Appearance (Clear) Urine pH (4.6-8.0) Ur Specific [place] (1.005-1.030) Urine Protein (Negative) Urine Glucose (UA) (Negative) mg/dL Urine Ketones (Negative) Urine Blood (Negative) Urine Nitrite (Negative) Urine Bilirubin (Negative) Urine Urobilinogen (0.2) mg/dL Ur Leukocyte Esterase (Negative) U Hyaline Cast (Auto) (0-2) /LPF Urine Microscopic RBC (0-5) /HPF Urine Microscopic WBC (0-5) /HPF Ur Epithelial Cells (None Seen) /HPF Urine Bacteria (None Seen) /HPF Urine Culture Reflexed (NO) Influenza Type A Ag NEGATIVE (NEGATIVE) Influenza Type B Ag NEGATIVE (NEGATIVE) RSV (PCR) NEGATIVE (NEGATIVE) SARS-CoV-2 (PCR) NEGATIVE (NEGATIVE) Slides for Path Review 06/22/24 06/22/24 06/22/24 Range/Units 14:20 14:20 14:15 WBC 10.6 H (3.98-10.04) x10^3/uL RBC 3.40 L (3.93-5.22) x10^6/uL Hgb 10.0 L (11.2-15.7) g/dL Hct 29.5 L (34.1-44.9) % MCV 86.8 (79.4-94.8) fL MCH 29.4 (25.6-32.2) pg MCHC 33.9 (32.2-35.5) g/dL RDW 16.7 H (11.7-14.4) % Plt Count 107 L (182-369) x10^3/uL MPV 10.0 (9.4-12.3) fL Gran % 91.7 H (34.0-71.1) % Immature Gran % (Auto) 0.5 H (0.001-0.429) % Nucleat RBC Rel Count 0.0 (0.00-0.2) % Eos # (Auto) 0.04 (0.04-0.36) x10^3/uL Immature Gran # (Auto) 0.05 H (0.001-0.031) x10^3u/L Absolute Lymphs (auto) 0.23 L (1.18-3.74) x10^3/uL Absolute Monos (auto) 0.53 (0.24-0.86) x10^3/uL Absolute Nucleated RBC 0.00 (0.00-0.012) x10^3u/L Lymphocytes % 2.2 L (19.3-51.7) % Monocytes % 5.0 (4.7-12.5) % Eosinophils % 0.4 L (0.7-5.8) % Basophils % 0.2 (0.1-1.2) % Absolute Granulocytes 9.75 H (1.56-6.13) x10^3/uL Basophils # 0.02 (0.01-0.08) x10^3/uL PT (9.4-12.5) SECONDS INR (0.8-3.0) Sodium 127 L (135-145) mmol/L Potassium 3.4 L (3.5-5.1) mmol/L Chloride 79 L (98-107) mmol/L Carbon Dioxide 29 (22-30) mmol/L Anion Gap 22.1 H (5-15) MEQ/L BUN 164 H (7-17) mg/dL Creatinine 4.12 H (0.52-1.04) mg/dL Estimated GFR 10.3 ML/MIN Glucose 137 H (74-106) mg/dL Calcium 12.7 H* (8.4-10.2) mg/dL Total Bilirubin 3.00 H (0.2-1.3) mg/dL AST 64 H (14-36) U/L ALT 17 (0-35) U/L Alkaline Phosphatase 99 (38-126) U/L Troponin I (0.000-0.033) ng/mL NT-Pro-B Natriuret Pep (<300) pg/mL Serum Total Protein 8.8 H (6.3-8.2) g/dL Albumin 4.0 (3.5-5.0) g/dL Urine Color Yellow (Yellow) Urine Appearance Cloudy A (Clear) Urine pH 5.0 (4.6-8.0) Ur Specific [place] 1.010 (1.005-1.030) Urine Protein Negative (Negative) Urine Glucose (UA) Negative (Negative) mg/dL Urine Ketones Negative (Negative) Urine Blood Trace (Negative) Urine Nitrite Positive A (Negative) Urine Bilirubin Negative (Negative) Urine Urobilinogen 0.2 (0.2) mg/dL Ur Leukocyte Esterase Large A (Negative) U Hyaline Cast (Auto) 3-5 A (0-2) /LPF Urine Microscopic RBC 0-2 (0-5) /HPF Urine Microscopic WBC 21-50 A (0-5) /HPF Ur Epithelial Cells Moderate A (None Seen) /HPF Urine Bacteria Many A (None Seen) /HPF Urine Culture Reflexed YES (NO) Influenza Type A Ag (NEGATIVE) Influenza Type B Ag (NEGATIVE) RSV (PCR) (NEGATIVE) SARS-CoV-2 (PCR) (NEGATIVE) Slides for Path Review YES - Progress Progress: improved Progress Note: 06/22/24 14:25 Differential diagnosis includes pneumonia, COVID, influenza, pulmonary embolism, A-fib, dehydration Basic labs, EKG, troponin, RSV, COVID, breathing treatment, steroids 06/22/24 17:24 Patient found to have several abnormalities, will need to be admitted to hospital. Patient has new onset A-fib. We have a previous EKG that does not demonstrate atrial fibrillation. We did give a dose of diltiazem. This brought her rate down to the low 100s. Patient initially in the 120s, 130s. Patient has an elevated troponin at 0.181. Most likely demand ischemia secondary to new onset A-fib. Patient has several electrolyte abnormalities including hyponatremia, hypercalcemia, acute renal failure, HATTIE. I did decide to give 1 L of fluid to help with any hypotension that may occur with the diltiazem as well as treat the HATTIE, hypercalcemia in consultation with Rosalva Mendoza, nurse practitioner for cardiology at [facility]. Patient did specifically request transferred to [facility]. Therefore we did talk to cardiology [facility] as before. Also discussed with Evelin, nurse practitioner for Dr. Wolf. She did accept the patient for inpatient stepdown unit for A-fib and HATTIE. Bed placement currently pending. Patient also found to have a likely UTI. All symptoms most likely due to underlying electrolyte abnormalities. Will continue to correct these as we are able in the emergency department. I will write for a second be BMP now. Will treat UTI with antibiotics. ED critical care statement As staff physician, I have provided critical care. Time: 54 mins Criteria for critical illness: A-fib with RVR, NSTEMI, acute renal failure Treatment and management provided include: Coordination of management with ETC care team, consultants, and inpatient care team. [id number] assessment of condition and response to therapy. Review and interpretation of emergent diagnostic testing. Medical chart review and completion. Direction and immediate supervision of the following therapy: Critical care was time spent personally by me on the following activities: blood draw for specimens, development of treatment plan with patient or surrogate, discussions with consultants, discussions with primary provider, interpretation of cardiac output measurements, evaluation of patient's response to treatment, examination of patient, obtaining history from patient or surrogate, ordering and performing treatments and interventions, ordering and review of laboratory studies, ordering and review of radiographic studies, pulse oximetry, re-evaluation of patient's condition and review of old charts. This time was independent of all procedures performed. Juaquin Velazco 06/22/24 18:40 Bed placement currently pending. Transfer of care to Dr. Matthews at 7 PM. He will continue to monitor patient closely as patient is awaiting bed assignment to [facility] in [place]. Counseled pt/family regarding: lab results, diagnosis, need for follow-up, rad results Medical Desision Making - Independent Historian Additional History obtained from: Spouse - Discussion of managment Care discussed with:: specialist Reviewed:: Test results Agreed on:: Treatment plan, decision to admit Will see patient: in hospital - Diagnostic Testing Diagnostic test were ordered, analyzed, and reviewed by me: Yes Radiological Interpretation: Interpreted by me - Departure Departure Disposition: Transfer Clinical Impression: Atrial fibrillation with RVR, NSTEMI (non-ST elevated myocardial infarction), Acute renal failure, Hypercalcemia, Elevated brain natriuretic peptide (BNP) level, Hyponatremia Condition: Stable Critical Care Time: Yes Critical Care Time(excluding separately billable procedures): Critical 30-74 mins Referrals: MARIBELL KAPOOR NP [Primary Care Provider, [facility]] - Follow up/PCP as directed
[2024-06-22] MEDS ORDERED: DUONEB 0.5-3 MG/3 ml Neb IH ONE (14:26)
[2024-06-22] MEDS: DUONEB 0.5-3 MG/3 ml Neb IH ONE (14:28)
[2024-06-22] MEDS ORDERED: Sterile H2O 10 ml IJ ONE (14:34)
[2024-06-22] MEDS ORDERED: BABY ASPIRIN 81 MG CHEW ONE (14:35)
[2024-06-22] MEDS ORDERED: solu-MEDROL ONE (14:35)
[2024-06-22 14:36] LABS: Absolute Neutrophil Ct (ANC) 9.75 x10^3/uL (1.56-6.13); BASOPHIL % 0.2 % (0.1-1.2); Basophil (Absolute #) 0.02 x10^3/uL (0.01-0.08); Eosinophil % 0.4 % (0.7-5.8); Eosinophil (Absolute #) 0.04 x10^3/uL (0.04-0.36); Hematocrit 29.5 % (34.1-44.9); IMMATURE GRAN # 0.05 x10^3u/L (0.001-0.031); IMMATURE GRAN % 0.5 % (0.001-0.429); Lymphocyte (Absolute #) 0.23 x10^3/uL (1.18-3.74); Lymphocytes % 2.2 % (19.3-51.7); Mean Cell Volume 86.8 fL (79.4-94.8); Mean Corpuscular Hemoglobin 29.4 pg (25.6-32.2); Mean Corpuscular Hgb Concent. 33.9 g/dL (32.2-35.5); Monocyte (Absolute #) 0.53 x10^3/uL (0.24-0.86); Neutrophil % 91.7 % (34.0-71.1); Platelet Count 107 x10^3/uL (182-369); Red Cell Distribution Width 16.7 % (11.7-14.4); White Blood Count 10.6 x10^3/uL (3.98-10.04)
[2024-06-22] MEDS: solu-MEDROL 125 MG, Sterile H2O 10 ml 2 ML IV ONE (14:39)
[2024-06-22 14:44] LABS: Appearance Cloudy (Clear); Bacteria Many /HPF (None Seen); Bilirubin Negative (Negative); Blood Trace (Negative); Epithelial Cells Moderate /HPF (None Seen); Glucose, Urine Negative (Negative); Ketones Negative (Negative); Leukocyte Esterase Large (Negative); Nitrite Positive (Negative); Protein,Urine Dip Negative (Negative); RBC 0-2 /HPF (0-5); Urobilinogen 0.2 mg/dL (0.2); WBC 21-50 /HPF (0-5)
[2024-06-22] MEDS: BABY ASPIRIN 81 MG CHEW PO ONE (14:45)
[2024-06-22 14:48] LABS: INR 1.29 (0.8-3.0); PROTIME 13.8 SECONDS (9.4-12.5)
[2024-06-22 14:50] LABS: ANION GAP 22.1 MEQ/L (5-15); Creatinine 1 4.12 mg/dL (0.52-1.04); EST GLOMERULAR FILTRATION RATE 10.3 ML/MIN; Potassium 3.4 mmol/L (3.5-5.1); Total Protein 8.8 g/dL (6.3-8.2)
[2024-06-22 14:56] LABS: Calcium 12.7 mg/dL (8.4-10.2)
[2024-06-22] MEDS ORDERED: Sodium Chloride 0.9% 1000 ML 1,000 ML ONE (15:02)
[2024-06-22] MEDS: Sodium Chloride 0.9% 1000 ML 1,000 ML IV STA (15:03)
[2024-06-22 15:09] LABS: INFLUENZA A NEGATIVE (NEGATIVE); INFLUENZA B NEGATIVE (NEGATIVE); RESPIRATORY SYNCTIAL VIRUS NEGATIVE (NEGATIVE); SARS-CoV-2 Xpert Express NEGATIVE (NEGATIVE)
[2024-06-22] MEDS ORDERED: PIPERACILLIN/TAZOBACTAM IV ONE (15:19)
[2024-06-22] MEDS ORDERED: Sodium Chloride 0.9% 100 ML ONE (15:19)
[2024-06-22] MEDS: PIPERACILLIN/TAZOBACTAM 3.375 GM in Sodium Chloride 0.9% 100 ML IV STA (15:20)
[2024-06-22 15:48] LABS: TROPONIN 0.181 ng/mL (0.000-0.033)
[2024-06-22] MEDS ORDERED: Cardizem IV 50 MG/10 ML IV ONE (16:21)
[2024-06-22] MEDS: DILTIAZEM HCL 25 MG/5 ML VIAL IV ONE (16:22)
[2024-06-22] MEDS: Cardizem IV 50 MG/10 ML IV ONE (16:23)
[2024-06-22 17:01] LABS: Slide Review 1 YES
[2024-06-22 19:54] VITALS: BP 139/104; PULSE 104; RESP 21; O2SAT 97
== END 2024-06-22 19:53 | disposition short-term general hospital (02) ==
LOC: ED 13:19
DX: I21.4 Non-ST elevation (NSTEMI) myocardial infarction (principal); I48.20 Chronic atrial fibrillation, unspecified; N17.9 Acute kidney failure, unspecified; E83.52 Hypercalcemia; R79.89 Other specified abnormal findings of blood chemistry; E87.1 Hypo-osmolality and hyponatremia; R06.02 Shortness of breath; R05.1 Acute cough; E11.42 Type 2 diabetes mellitus with diabetic polyneuropathy; Z79.4 Long term (current) use of insulin; Z79.899 Other long term (current) drug therapy
CPT/HCPCS: 0241U; 36415; 71045; 80053; 81001; 83880; 84484; 85025; 85610; 87086; 93005; 93041; 96365; 96375; 99291; 87077; 87186; 96374; 99285; J2919; A9270-GY